=== PATIENT | female | born 1985 | race African-American/Black ===

== ENCOUNTER 2017-05-10 09:13 | Emergency (ER) | payer SELFPAY ==
[~2017-05-10] VITALS: Ht 167.6 cm; Wt 58.0 kg
[2017-05-10 09:18] VITALS: BP 149/79; PULSE 80; RESP 20; TEMP 98; O2SAT 100
[2017-05-10 09:44] VITALS: O2SAT 100
[2017-05-10] MEDS ORDERED: ASPIRIN 81 MG CHEW TAB PO ONE (09:45)
[2017-05-10] MEDS ORDERED: LORazepam 2 MG/ML VIAL IV PUSH ONE (09:45)
[2017-05-10] MEDS ORDERED: SODIUM CHLORIDE 0.9% FLUSH 10 ML FLUSH IVF PRN (09:45)
--- NOTE | 2017-05-10 10:04 | PD ---
HPI . Chest pain Chief Complaint: Cardiac Complaint Time Seen by Provider: 09:40 Travel History International Travel<30 days: No Contact w/Intl Traveler<30days: No Traveled to known affect area: No History of Present Illness HPI This patient presents with a chief complaint of chest pain. She describes a cramping sensation which she rates at 5/10. Onset was at 7:45 AM while having a bowel movement. The course has been continuous. Associated symptoms include shortness of breath, lightheadedness, N/V/D. Modifying factor is that it is worse on sitting. This patient states that she does not smoke. She has not been on any recent trips. She does not take control pills. She has no significant past medical history. She states that she has had this before associated with running track and has been evaluated. No significant etiology for her symptoms was found. She states this been quite some times she had a similar episode. [facility] Past Medical History Medical History: Denies Significant Hx Tetanus Vaccination: > 5 Years Influenza Vaccination: No ?: Not Past Surgical History Other Surgery: Yes (cyst on groin removed) Social History Alcohol Use: Yes (occasionally) Tobacco Use: No Substance Use: No Allergies-Medications (Allergen,Severity, Reaction): Coded Allergies: penicillin V (Verified Allergy, Severe, kidney stones, 05/10/17) Sulfa (Sulfonamide Antibiotics) (Verified Allergy, Unknown, 05/10/17) Reported Meds & Prescriptions Reported Meds & Active Scripts Active No Active Prescriptions or Reported Medications Review of Systems Except as stated in HPI: all other systems reviewed are Neg Physical Exam Narrative GENERAL: Awake and alert. SKIN: warm/dry. Normal color. HEAD: Normocephalic. Atraumatic. EYES: Pupils equal and round. No scleral icterus. No injection or drainage. ENT: No nasal bleeding or discharge. Mucous membranes pink and moist. NECK: Trachea midline. Full range of motion without pain.. CARDIOVASCULAR: Regular rate and rhythm. Heart sounds are normal. RESPIRATORY: No accessory muscle use. Clear to auscultation. Breath sounds equal bilaterally. GASTROINTESTINAL: Abdomen soft. Nontender. Bowel sounds present. Nondistended. MUSCULOSKELETAL: No obvious deformities. NEUROLOGICAL: Awake and alert. No obvious cranial nerve deficits. Motor grossly within normal limits. Normal speech. PSYCHIATRIC: Anxious affect; insight and judgment normal. Data Data Last Documented VS Vital Signs Date Time Temp Pulse Resp B/P (MAP) Pulse Ox O2 Delivery O2 Flow Rate FiO2 05/10/17 10:21 82 20 128/86 (100) 100 Room Air 05/10/17 09:18 98.0 Orders Orders Electrocardiogram (05/10/17 09:40) Basic Metabolic Panel (Bmp) (05/10/17 09:40) Complete Blood Count With Diff (05/10/17 09:40) Magnesium (Mg) (05/10/17 09:40) Troponin I (05/10/17 09:40) Chest, Single Ap (05/10/17 09:40) Ecg Monitoring (05/10/17 09:40) Iv Access Insert/Monitor (05/10/17 09:40) Oximetry (05/10/17 09:40) Aspirin Chew (Aspirin Chew) (05/10/17 09:45) Sodium Chloride 0.9% Flush (Ns Flush) (05/10/17 09:45) Lorazepam Inj (Ativan Inj) (05/10/17 09:45) Labs Laboratory Tests Test 05/10/17 09:50 White Blood Count 5.6 TH/MM3 Red Blood Count 4.62 MIL/MM3 Hemoglobin 13.0 GM/DL Hematocrit 40.0 % Mean Corpuscular Volume 86.6 FL Mean Corpuscular Hemoglobin 28.2 PG Mean Corpuscular Hemoglobin Concent 32.6 % Red Cell Distribution Width 17.0 % Platelet Count 261 TH/MM3 Mean Platelet Volume 9.7 FL Neutrophils (%) (Auto) 63.5 % Lymphocytes (%) (Auto) 22.5 % Monocytes (%) (Auto) 11.0 % Eosinophils (%) (Auto) 2.5 % Basophils (%) (Auto) 0.5 % Neutrophils # (Auto) 3.6 TH/MM3 Lymphocytes # (Auto) 1.3 TH/MM3 Monocytes # (Auto) 0.6 TH/MM3 Eosinophils # (Auto) 0.1 TH/MM3 Basophils # (Auto) 0.0 TH/MM3 CBC Comment DIFF FINAL Differential Comment Blood Urea Nitrogen 13 MG/DL Creatinine 0.75 MG/DL Random Glucose 85 MG/DL Calcium Level 8.5 MG/DL Magnesium Level 2.1 MG/DL Sodium Level 138 MEQ/L Potassium Level 4.2 MEQ/L Chloride Level 106 MEQ/L Carbon Dioxide Level 24.9 MEQ/L Anion Gap 7 MEQ/L Estimat Glomerular Filtration Rate 111 ML/MIN Troponin I LESS THAN 0.02 NG/ML MDM Medical Decision Making Medical Screen Exam Complete: Yes Emergency Medical Condition: Yes Medical Record Reviewed: Yes (this patient has had no previous visits here.) Interpretation(s) EKG shows a sinus rhythm. No ST segment elevation or depression. Differential Diagnosis Differential diagnosis of chest pain includes but is not limited to musculoskeletal pain, pulmonary embolism, acute coronary syndrome, pneumonia, pleurisy Narrative Course This patient presents with chest pain. She is very anxious appearing. She is a young patient who has no cardiac risk factors. She is PERC negative. Last Impressions Chest X-Ray 05/10/17 0940 Signed Impressions: Service Date/Time: Wednesday, May 10, 2017 09:49 - CONCLUSION: No acute disease. Lucas Burnett MD CBC & BMP Diagram 05/10/17 09:50 Calcium Level 8.5, Magnesium Level 2.1 trop < 0.02 The history, exam, diagnostic testing, and current condition do not suggest any significant pathology to warrant further testing, continued ED treatment, admission, or surgical evaluation at this point. No EMC was found. The patient 's condition is stable and appropriate for discharge. Diagnosis Primary Impression: Chest pain Qualified Codes: R07.9 - Chest pain, unspecified Patient Instructions: Chest Pain (DC), General Instructions Additional Instructions: Follow-up with your primary care provider Scripts No Active Prescriptions or Reported Meds Disposition: 01 DISCHARGE HOME Condition: Stable Jody Velasquez MD May 10, 2017 10:04
[2017-05-10 10:14] LABS: AUTOMATED NEUTROPHIL # 3.6 TH/MM3 (1.8-7.7); BASOPHIL % 0.5 % (0.0-2.0); EOSINOPHIL # 0.1 TH/MM3 (0-0.4); EOSINOPHIL % 2.5 % (0.0-4.0); HEMO FLAGS DIFF FINAL; LYMPH % 22.5 % (9.0-44.0); LYMPHOCYTE # 1.3 TH/MM3 (1.0-4.8); MEAN CELL VOLUME 86.6 FL (80.0-100.0); MEAN CORPUSCULAR HEMOGLOBIN 28.2 PG (27.0-34.0); MEAN CORPUSCULAR HGB CONC 32.6 % (32.0-36.0); NEUT % 63.5 % (16.0-70.0); PLATELET COUNT 261 TH/MM3 (150-450); RED BLOOD COUNT 4.62 MIL/MM3 (4.00-5.30); WHITE BLOOD COUNT 5.6 TH/MM3 (4.0-11.0)
[2017-05-10 10:21] VITALS: BP 128/86; PULSE 82; RESP 20; O2SAT 100
--- NOTE | 2017-05-10 10:28 | RADRPT ---
EXAM DATE/TIME: 05/10/2017 09:49 [facility] COMPARISON: No previous studies available for comparison. INDICATIONS : Midline chest pain. MEDICAL HISTORY : None. SURGICAL HISTORY : None. ENCOUNTER: Initial ACUITY: 1 day PAIN SCORE: 7/10 LOCATION: Chest, midline/ FINDINGS: A single view of the chest demonstrates the lungs to be symmetrically aerated without evidence of mas s, infiltrate or effusion. The cardiomediastinal contours are unremarkable. Osseous structures are intact. CONCLUSION: No acute disease. Lucas Burnett MD on May 10, 2017 at 10:22 Board Certified Radiologist. This report was verified electronically.
[2017-05-10 10:38] LABS: ANION GAP 7 MEQ/L (5-15); BICARBONATE 24.9 MEQ/L (21.0-32.0); BLOOD UREA NITROGEN 13 MG/DL (7-18); CHLORIDE 106 MEQ/L (98-107); GLOMERULAR FILTRATION RATE 111 ML/MIN (>89); MAGNESIUM 2.1 MG/DL (1.5-2.5); SODIUM (NA) 138 MEQ/L (136-145)
[2017-05-10 10:39] LABS: POTASSIUM 4.2 MEQ/L (3.5-5.1)
[2017-05-10 11:32] VITALS: BP 107/66; PULSE 68; RESP 16; O2SAT 99
--- NOTE | 2017-05-11 10:44 | EKG ---
Date Performed: 05/10/2017 Time Performed: 09:43:02 PTAGE: 31 years EKG: Sinus rhythm POSSIBLE LEFT ATRIAL ENLARGEMENT POSSIBLE RIGHT VENTRICULAR CONDUCTION DELAY LEFT POSTERIOR FASCICUL AR BLOCK ABNORMAL ECG NO PREVIOUS TRACING DOCTOR: Paul Coyle Interpretating Date/Time 05/11/2017 10:39:20
== END 2017-05-10 11:40 | disposition home or self-care (01) ==
LOC: NEPD 09:13
DX: R07.9 Chest pain, unspecified (principal); R06.02 Shortness of breath; R42 Dizziness and giddiness; R11.2 Nausea with vomiting, unspecified; R19.7 Diarrhea, unspecified; I44.5 Left posterior fascicular block; R94.31 Abnormal electrocardiogram [ECG] [EKG]; Z88.0 Allergy status to penicillin; Z88.2 Allergy status to sulfonamides
CPT/HCPCS: 71010; 80048; 83735; 84484; 85025; 93005; 96374; 99285; J2060